=== PATIENT | male | born 1945 | race Caucasian/White ===

== ENCOUNTER 2018-11-07 05:33 | Inpatient (IN) | payer MEDICARE, OTHER ==
[2018-11-03 17:46] VITALS: BMI 28.9
[2018-11-07] VITALS (24 sets, daily range): BP systolic 110–140; BP diastolic 65–88; PULSE 77–100; RESP 11–24; Ht 170.2 cm; Wt 83.0 kg
[~2018-11-07] VITALS: Ht 170.2 cm; Wt 83.0 kg
[~2018-11-07 05:33] MED LIST: ASPI-903 PO; FISH1CAP PO; LOVA10TA63 PO
[2018-11-07] MEDS ORDERED: CRES5 PO (06:26)
[2018-11-07] MEDS ORDERED: OMEG-179 PO (06:28)
[2018-11-07] MEDS ORDERED: SURGIFOAM POWDER 1 GM KIT ONE ×3 (06:51→12:37)
[2018-11-07] MEDS ORDERED: THROMBIN 5000 UNIT VIAL ONE ×3 (06:51→10:10)
[2018-11-07] MEDS ORDERED: CA CHLORIDE 10% 10 ML SYRINGE ONE (06:52)
[2018-11-07] MEDS ORDERED: HEPARIN 1000 UNITS/ML 10 ML INJ ONE ×2 (06:53→08:17)
[2018-11-07] MEDS ORDERED: BUPIVACAINE 0.5%/EPI (SDV) 30 ML INJ ONE (06:55)
[2018-11-07] MEDS ORDERED: CEFAZOLIN 1 GM INJ ONE ×2 (06:55→07:00)
--- NOTE | 2018-11-07 06:59 | PREAC ---
Date/Time of Note Date/Time of Note DATE: 11/07/18 TIME: 06:57 Anesthesia Eval and Record Evaluation Time Pre-Procedure Interview DATE: 11/07/18 TIME: 06:57 Age 73 Sex male NPO: 8 hrs Preoperative diagnosis lumbar spinal degeration Planned procedure lumbar spinal decompression Past Medical History Past Medical History: Includes Cardio: HTN, Dyslipidemia, MS, CAD, PTCA/Stent, PPM/AICD Neuro: Peripheral neuropathy Surgery & Anesthesia Issues No known issue Meds Anticoagulation: No Beta Garima within 24 hr: No Reason Beta Garima not given: Pt. not on B-Garima Reported Medications [place]-3S/Dha/Epa/Fish Oil (FISH OIL 1,200 MG SOFTGEL) 1 Each Capsule, 1 EACH PO QHS, CAP 11/07/18 Rosuvastatin Calcium* (Crestor*) 5 Mg Tablet, 5 MG PO QHS, #30 TAB 11/07/18 Fish Oil/Dha/Epa (FISH OIL 1,200 MG FISH OIL) 1 Each Capsule, 1 EACH PO, CAP 11/03/18 Aspirin* (Aspirin* Chew) 81 Mg Tab.chew, 81 MG PO DAILY, TAB.CHEW 11/03/18 Lovastatin* (Lovastatin*) 10 Mg Tablet, 5 MG PO HS, TAB 11/03/18 Current Medications Cefazolin Sodium/ Dextrose 50 ml @ 100 mls/hr PREOP IVPB ; Start 11/27/18 at 07:00; Stop 11/27/18 at 16:00 Lactated Ringer's 1,000 ml @ 20 mls/hr Q24H IV* ; Start 11/07/18 at 07:00; Stop 11/09/18 at 08:59 Meds reviewed: Yes Allergies Coded Allergies: No Known Allergy (Unverified , 11/03/18) Allergies Reviewed: Yes Labs/Studies Labs Reviewed: Reviewed by anesthesiologist Blood Bank Test 11/07/18 06:04 Blood Type O POSITIVE test: N/A Studies: ECG, CXR, Other Pre-procedure Exam Last vitals Vital Signs Date Temp Pulse Resp B/P (MAP) Pulse Ox O2 O2 Flow FiO2 Time Delivery Rate 11/07/18 97.9 77 17 128/88 97 Room Air 06:22 (101) Airway: Adequate mouth opening, Adequate thyromental dist Mallampati: Mallampati III Teeth: Normal Lung: Normal Heart: Normal ASA Physical Status ASA physical status: 3 Emergency: None Planned Anesthetic General/MAC: ETT Planned Pain Management Parenteral pain med, Local by surgeon Pre-operative Attestations Prior to commencing anesthesia and surgery, the patient was re-evaluated, there was verification of: *The patient's identity *The results of appropriate recent lab work and preoperative vital signs *The above evaluation not changing prior to induction *Anesthetic plan, risk benefits, alternative and complications discussed with patient/family; questions answered; patient/family understands, accepts and wis hes to proceed. GLENDY HOFF MD Nov 07, 2018 06:59
[2018-11-07] MEDS ORDERED: LABETALOL HCL 20MG INJ IV PRN (07:00)
[2018-11-07] MEDS ORDERED: DIPHENHYDRAMINE 25 MG CAP PO PRN (07:00)
[2018-11-07] MEDS ORDERED: DIPHENHYDRAMINE 50 MG INJ IV PRN ×2 (07:00)
[2018-11-07] MEDS ORDERED: CYCLOBENZAPRINE 10 MG TAB PO PRN (07:00)
[2018-11-07] MEDS ORDERED: IPRATROPIUM (NEB) 0.5 MG/2.5 ML AMP HHN PRN (07:00)
[2018-11-07] MEDS: LACTATED RINGER'S 1,000 ML IV* SCH (07:00)
[2018-11-07] MEDS ORDERED: hydrALAzine 20 MG INJ IV PRN (07:00)
[2018-11-07] MEDS ORDERED: HYDROmorphONE 0.5 MG/0.5 ML SYG IV PRN (07:00)
[2018-11-07] MEDS ORDERED: NALOXONE (0.4 MG/ML) INJ IV PRN (07:00)
[2018-11-07] MEDS ORDERED: CEPASTAT LOZENGE MT PRN (07:00)
[2018-11-07] MEDS ORDERED: DESFLURANE 15 MIN ONE (07:00)
[2018-11-07] MEDS ORDERED: BISACODYL 10 MG SUPP PR PRN (07:00)
[2018-11-07] MEDS ORDERED: AL HYDROX/MG HYDROX/SIMETH 30 ML CUP PO PRN (07:00)
[2018-11-07] MEDS ORDERED: ONDANSETRON 4 MG INJ ONE (07:00)
[2018-11-07] MEDS ORDERED: HYDROmorphONE 0.2 MG/ML PCA IV SCH (07:00)
[2018-11-07] MEDS ORDERED: ROCURONIUM 50 MG INJ ONE ×2 (07:00→07:13)
[2018-11-07] MEDS ORDERED: METOCLOPRAMIDE 10 MG INJ ONE (07:00)
[2018-11-07] MEDS ORDERED: MEPERIDINE 25 MG INJ IV PRN (07:00)
[2018-11-07] MEDS ORDERED: LEVALBUTEROL (NEB) 1.25 MG/0.5 ML AMP HHN PRN (07:00)
[2018-11-07] MEDS ORDERED: FENTAnyl 50 MCG/ML VIAL IV PRN ×2 (07:00)
[2018-11-07] MEDS ORDERED: ONDANSETRON 4 MG INJ IV PRN ×2 (07:00)
[2018-11-07] MEDS ORDERED: HYDROmorphONE 1 MG/5 ML IV SYRINGE IV PRN ×3 (07:00)
--- NOTE | 2018-11-07 07:00 | HPN ---
Date/Time of Note Date/Time of Note DATE: 11/07/18 TIME: 06:59 Interval H&P Admission Note Pt. seen H&P reviewed: No system changes LINDA GLASS PA-C Nov 07, 2018 07:00
[2018-11-07] MEDS ORDERED: FENTAnyl 50 MCG/ML VIAL ONE ×3 (07:06→14:20)
[2018-11-07] MEDS ORDERED: ETOMIDATE 20 MG INJ ONE (07:07)
[2018-11-07] MEDS ORDERED: MIDAZOLAM 1 MG/ML 2 ML INJ ONE (07:07)
[2018-11-07] MEDS ORDERED: DEXAMETHASONE 4 MG/ML 5 ML INJ ONE (07:13)
[2018-11-07] MEDS ORDERED: SUCCINYLCHOLINE CHLORIDE 100 MG/5 ML SYG IV ONE (07:13)
[2018-11-07] MEDS ORDERED: LIDOCAINE 2% (SDV) 5 ML INJ ONE (07:13)
[2018-11-07] MEDS ORDERED: BUPIVACAINE 0.25% (MPF) 30 ML INJ ONE (12:52)
[2018-11-07] MEDS: CEFAZOLIN 1 GM/50 ML (PMX) 50 ML IVPB SCH ×2 (14:29→18:11)
[2018-11-07] MEDS: DOCUSATE SODIUM 100 MG CAP PO SCH ×2 (14:30→21:03)
--- NOTE | 2018-11-07 15:02 | OPR ---
DATE OF OPERATION: 11/07/2018 PREOPERATIVE DIAGNOSES: 1. L3 to L4, L4 to L5 unstable spondylolisthesis with stenosis and radiculopathy. 2. Neurogenic claudication. 3. Pacemaker. POSTOPERATIVE DIAGNOSES: 1. L3 to L4, L4 to L5 unstable spondylolisthesis with stenosis and radiculopathy. 2. Neurogenic claudication. 3. Pacemaker. PROCEDURES: 1. Bilateral pedicle screw placement at L3, L4 and L5. 2. Central decompressive laminectomy for stenosis with decompression of L3, L4, L5 nerve roots. 3. Bilateral Marcos-Ferreira osteotomies at L3 to L4 and L4 to L5. 4. Placement of intervertebral biomechanical device at L3 to L4 and L4 to L5 bilaterally. 5. Transforaminal lumbar interbody fusion L3 to L4, L4 to L5 bilaterally. 6. Posterolateral fusion, L4 to L5. 7. Use of allograft. 8. Use of autograft. 9. Use of C-arm fluoroscopy with interpretation without radiologist present. 10. Intraoperative neuromonitoring. 11. Use of operative microscope. PRIMARY SURGEON: Mikel Traylor MD EXECUTIVE ACCOUNT MANAGER: Sherly Hanks PA-C NEED FOR OFFICE RENTAL CLERK: During this spinal surgical procedure, my email marketing assistant was used to retract and protect the spinal nerves and dural sac. My email marketing assistant also employed the suction catheters to ev acuate blood from the surgical field to improve visualization of the neural structures. The assistan t was medically necessary to facilitate the completion of the surgery in a safe and expeditious [facility] r. [facility] regulations, as well as hospital bylaws, preclude the use of non-licensed [facility] personnel, such as operating room technicians, to perform these functions. IMPLANTS: 1. Kishor pedicle screws 6.5 x 45 mm at L3, L4 and L5 bilaterally with 35 mm rods and crosslink. 2. Nexxt Matrix titanium cage 26 x 12 mm at L3 to L4 bilaterally and 26 x 11 mm at L4 to L5 bilatera ll. 3. Biosphere. FINDINGS: Neuromonitoring at the start of the case revealed nerve signals down 30% bilaterally at L3 , L4 down 60% on the left, 20% on the right, L5 and S1 were down 50% bilaterally. At the end of the case, nerve signals returned to normal. The patient had significant stenosis at L3 to L4 and L4 to L 5 with sagittally oriented facet joints. The two levels are quite unstable with listhesis. There is facet hypertrophy and overgrowth. ESTIMATED BLOOD LOSS: 250 mL with blood return via Cell Saver. DRAINS: One. SPECIMENS: L3 to L4 and L4 to L5 disks. COMPLICATIONS OF PROCEDURES: None. ANESTHESIOLOGIST: Dr. Valerio. TYPE OF ANESTHESIA: General. INDICATIONS FOR PROCEDURE: This is a 73-year-old gentleman with spinal stenosis and neurogenic marly ication in the setting of unstable spondylolisthesis at L3 to L4 and L4 to L5 with resultant stenosis . He had a pacemaker and preoperative CT scan was reviewed. He had failed nonoperative measures; th erefore I recommended that he undergo the above procedure. Preoperatively, we discussed risks, benef its, alternatives. He understood and wished to proceed. DESCRIPTION OF PROCEDURE IN DETAIL: The patient was identified in the holding area, given Ancef anti biotic, taken to the operating room, where he was successfully placed under general anesthesia. Neur omonitoring leads were placed. Sequential compressive devices were applied. Friedman catheter was intr oduced. Arterial line and central lines were placed. Remote intraoperative neuromonitoring was perf ormed by Dr. Crow from 6:38 until 13:30 to include SSEP, MEP and EMG performed by [employer] [facility]. The patient was placed on the operating table in prone position over a Rickey frame. All bony p rominences were well padded. The back was then prepped and draped in usual fashion. Using the fahadi le fluoroscope, I identified the incision site. I anesthetized skin, subcutaneous tissue and paraspi nal musculature. Incision was then made from L3 to L5. Incision was taken down to dorsal fascia, wh ich was incised with Bovie cautery. I then subperiosteally dissected the L3, L4 and L5 lamina out to the transverse processes. Once the area was exposed, I placed bilateral pedicle screws at L3, L4 an d L5. Once the screws were in place, I stimulated each of the screws and there was no evidence of co rtical breach. Next, microscope was brought in. Central decompressive laminectomy was performed at L3 to L4 and L4 to L5. This was done in order to alleviate the stenosis and beyond was required in o rder to perform an interbody fusion. I also decompressed a portion of the medial facets at the L2 to L3 level. I was able to decompress the L3, L4 and L5 nerve roots bilaterally. The patient was foun d to be quite unstable. Once this was done, I then performed Marcos-Travis osteotomies bilaterally with complete removal of the pars and facets in order to mobilize the spine in order to reduce the sp ondylolisthesis. Next, I performed annulotomy and radical diskectomies bilaterally at L3 to L4 and L 4 to L5. I prepared the endplates. I placed various trials and chose the appropriate graft heights. I then placed autograft and allograft anteriorly. I then took the titanium cage within which I alice swetha allograft and I impacted intervertebral biomechanical devices bilaterally at L3 to L4 and L4 to L 5 to complete the transforaminal lumbar interbody fusion bilaterally at L3 to L4 and L4 to L5. Once this was done, the Rickey frame was let down. I placed the appropriate size rods and set screws whic h I tightened per manufacture specifications and the set screw cadmium plater tabs were removed. Due to th e instability, I also placed a crosslink which was done between the L4 and L5 pedicle screws. At thi s point, I took final AP and lateral images and I was happy with placement of the hardware and alignm ent of the spine. The wound was then copiously irrigated. The specimen was performed and there was no leak of CSF. I prepared the posterolateral gutters and placed autograft and allograft for postero lateral fusion at L3 to L4 and L4 to L5. I then placed an epidural catheter through which I injected 100 mcg of fentanyl mixed with 2 mL of Marcaine 0.25% preservative-free and the catheter was pulled. PPP and thrombin were injected over the dura for hemostatic purposes. I then placed a deep subfasc ial drain and closed deep fascia with #1 Stratafix suture. At this point, microscope was off the anna ld. I then closed subcutaneous tissue with a 2-0 Vicryl stitch. I then performed a Monocryl closure with a 4-0 Monocryl in subcuticular layer. Dermabond and sterile dressing was then applied. Nerve signals were normal. The patient was awakened from anesthesia and taken to the recovery room in stab le condition. Lap, sponge and instrument counts were correct x2. There were no apparent complicatio ns during the procedure. The patient will be admitted to the orthopedic [facility] for routine postoperative care to include pain co ntrol, neurovascular checks, antibiotics and physical therapy. Dictated By: MIKEL ALVAREZ/NTS Conf#: [id number] [facility]#: [id number] CC: NEHEMIAH DANIELLE MD;*EndCC*
--- NOTE | 2018-11-07 16:19 | SIPON ---
Date/Time of Note Date/Time of Note DATE: 11/07/18 TIME: 16:18 Operative Report Preoperative Diagnosis Spondylolisthesis Postoperative Diagnosis Spondylolisthesis Operation/Procedure Performed Lumbar fusion Surgeon see signature line ob gyn physician assistant Sherly Hanks PA-C Anesthesia: general Estimated blood loss: 250 - 300 ml's Transfusion Required none Specimen Disc Grafts/Implants Cage and screws Complications none CAR BAIG MD Nov 07, 2018 16:19
--- NOTE | 2018-11-07 16:39 | PAC ---
Date/Time of Note Date/Time of Note DATE: 11/07/18 TIME: 16:39 Post-Anesthesia Notes Post-Anesthesia Note Last documented vital signs Vital Signs Date Temp Pulse Resp B/P (MAP) Pulse Ox O2 O2 Flow FiO2 Time Delivery Rate 11/07/18 100.1 13:50 11/07/18 77 17 128/88 97 Room Air 06:22 (101) Activity: WNL Respiratory function: WNL Cardiovascular function: WNL Mental status: Baseline Pain reasonably controlled: Yes Hydration appropriate: Yes Nausea/Vomiting absent: Yes GLENDY HOFF MD Nov 07, 2018 16:39
[2018-11-07] MEDS: D5W-0.45 NACL + KCL 20 MEQ 1,000 ML IV SCH ×2 (17:00→18:26)
--- NOTE | 2018-11-07 20:11 | CONS ---
DATE OF ADMISSION: 11/07/2018 DATE OF CONSULTATION: TYPE OF CONSULTATION: Medical. Thank you, Dr. Traylor, for asking me to participate in medical management of this patient. REASON FOR CONSULTATION: To manage the patient's coronary artery disease, hyperlipidemia. HISTORY OF PRESENT ILLNESS: This 73-year-old man is now postop a lumbar spine surgery. The patient has a history of lumbar spine stenosis. He was having neurogenic claudication and failed medical the rapy. He is now postop having a central decompressive laminectomy with decompression of L3, L4, L5 n erve roots and the placement of intervertebral biomechanical device bilaterally for posterolateral fu tonny of L4 to L5. The patient is awake and alert. He is conversant and seems comfortable. He is mc ving some incisional low back pain, but the pain is under control. He denies chest pain or shortness of breath. The patient does have a history of coronary artery disease and did undergo a coronary ar rajesh stent placement in the LAD in 2002. He was seen preoperatively by Dr. Prachi Luis and had cardiac clearance for this surgery. CURRENT MEDICATIONS: Included: 1. Fish oil and baby aspirin, which were discontinued prior to surgery. 2. He is also taking Crestor 5 mg a day. PAST MEDICAL HISTORY: Remarkable for pacemaker placement in 2015, encephalitis in 2010, cardiac sten t placement in 2002, squamous cell skin cancer removed, coronary artery disease, encephalitis in 2010 , squamous cell skin cancer, hyperlipidemia. PAST SURGICAL HISTORY: Coronary artery stent placement in 2002, pacemaker in 2015, squamous cell ski n cancer removed. SOCIAL HISTORY: The patient is retired, . Quit smoking in 1997 and drinks alcohol a few time s a year. ALLERGIES: HE HAS INTOLERANCE TO: 1. HIGH DOSES OF ANTIBIOTICS. 2. MOBIC. 3. STEROIDS. HE DOES NOT HAVE TRUE DRUG ALLERGIES. PHYSICAL EXAMINATION: GENERAL: At this time reveals a well-developed man in no apparent distress. VITAL SIGNS: He is afebrile, pulse of 84, respirations 20, blood pressure 112/76, O2 saturation 97% on room air. HEENT: Head is normocephalic. Eyes: Extraocular muscles are intact. Nose and mouth are normal. NECK: Supple. No neck vein distention. LUNGS: Clear to auscultation. HEART: Regular rhythm. No murmurs, gallops or rubs. ABDOMEN: Soft, nontender. No masses or megaly. EXTREMITIES: No peripheral edema. IMPRESSION: This patient is now postop a lumbar spine surgery including decompression and fusion of L3 to L4. He is awake and alert. His pain is under control. I will manage the patient's coronary a rtery disease, hyperlipidemia and any other medical issues that arise. PLAN: 1. Hold current medications. 2. Check labs in the morning. 3. Postop lumbar spine surgery protocol. 4. I will follow the patient along with you. Dictated By: NEHEMIAH DANIELLE MD ND/NTS Conf#: [id number] DID#: [id number] CC: CAR TRAYLOR MD;*End*
[2018-11-08] MEDS: CEFAZOLIN 1 GM/50 ML (PMX) 50 ML IVPB SCH (02:02)
[2018-11-08] MEDS: D5W-0.45 NACL + KCL 20 MEQ 1,000 ML IV SCH (05:00)
[2018-11-08] MEDS: PANTOPRAZOLE 40 MG INJ IV SCH ×2 (05:31→06:56)
[2018-11-08] MEDS: LACTATED RINGER'S 1,000 ML IV* SCH (05:31)
[2018-11-08 07:40] VITALS: BP 107/61; PULSE 90; RESP 18
--- NOTE | 2018-11-08 08:24 | CONS ---
Date/Time of Note Date/Time of Note DATE: 11/08/18 TIME: 08:21 Assessment/Plan Assessment/Plan Assessment/Plan 1. This patient is 1 day postop a lumbar spine surgery, decompression and fusion. He is awake and alert. He does have some incisional back pain but is under control with current medications. 2. He will start physical therapy today. He is not having any cardiac or pulmonary symptoms. Result Diagram: 11/08/18 0435 11/08/18 0435 Results 24hrs Laboratory Tests Test 11/08/18 03:15 11/08/18 04:35 11/08/18 06:39 Urine Color YELLOW Urine Clarity SLIGHTLY CLOUDY A Urine pH 5.0 Urine Specific Pierce 1.025 Urine Ketones NEGATIVE Urine Nitrite NEGATIVE Urine Bilirubin NEGATIVE Urine Urobilinogen NEGATIVE Urine Leukocyte Esterase NEGATIVE Urine Microscopic RBC 181 H Urine Microscopic WBC 6 H Urine Bacteria FEW A Urine Mucus FEW A Urine Hemoglobin 2+ H Urine Glucose NEGATIVE Urine Total Protein 1+ H White Blood Count 9.4 Red Blood Count 3.95 L Hemoglobin 10.0 L Hematocrit 32.1 L Mean Corpuscular Volume 81.3 L Mean Corpuscular Hemoglobin 25.3 L Mean Corpuscular 31.2 L Hemoglobin Concent Red Cell Distribution Width 15.1 H Platelet Count 102 L Mean Platelet Volume 11.4 H Immature Granulocytes % 0.200 Neutrophils % 77.7 H Lymphocytes % 11.2 L Monocytes % 10.7 Eosinophils % 0.1 Basophils % 0.1 Nucleated Red Blood Cells % 0.0 Immature Granulocytes # 0.020 Neutrophils # 7.3 Lymphocytes # 1.1 Monocytes # 1.0 H Eosinophils # 0.0 Basophils # 0.0 Nucleated Red Blood Cells # 0.0 Sodium Level 137 Potassium Level 4.0 Chloride Level 105 Carbon Dioxide Level 26 Anion Gap 6 Blood Urea Nitrogen 14 Creatinine 0.74 Est Glomerular Filtrat Rate mL/min Glucose Level 128 Calcium Level 8.2 L Magnesium Level 1.9 Lab Scanned Report REFERENCE LAB Consultation Date/Type/Reason Admit Date/Time Nov 07, 2018 at 05:33 Initial Consult Date 24 HR Interval Summary Free Text/Dictation Del is 1 day postop lumbar spine surgery. He is awake and alert. He has no complaints other than some incisional back pain. Constitutional: no complaints, improved Exam/Review of Systems Vital Signs Vitals Vital Signs Date Temp Pulse Resp B/P (MAP) Pulse Ox O2 O2 Flow FiO2 Time Delivery Rate 11/08/18 98.3 90 18 107/61 98 Nasal 07:40 (76) Cannula 11/07/18 2.0 23:55 Intake and Output 11/07/18 11/07/18 11/08/18 1515:00 23:00 07:00 IntakeIntake Total 1700 ml 310 ml 1300 ml OutputOutput Total 850 ml 500 ml 950 ml BalanceBalance 850 ml -190 ml 350 ml Exam Constitutional: alert, oriented, well developed Respiratory: clear to auscultation, normal air movement Cardiovascular: regular rate and rhythm Gastrointestinal: soft, non-tender Musculoskeletal: nl extremities to inspection Medications Medications Current Medications Lactated Ringer's 1,000 ml @ 20 mls/hr Q24H IV* ; Start 11/07/18 at 07:00; Stop 11/09/18 at 08:59 Potassium Chloride/Dextrose/ Sod Cl 1,000 ml @ 100 mls/hr Q10H IV Last admini stered on 11/08/18at 05:00; Admin Dose 100 MLS/HR; Start 11/07/18 at 07:00 Acetaminophen/ Hydrocodone Bitart ([place] (10/325)) 1 tab Q4H PRN PO PAIN LEVEL 1-5; Start 11/09/18 at 10:00 Acetaminophen/ Hydrocodone Bitart ([place] (10/325)) 2 tab Q4H PRN PO PAIN LEVEL 6-10; Start 11/08/18 at 10:00 Hydromorphone HCl (Dilaudid) 0.2 mg Q1H PRN IV BREAKTHROUGH PAIN; Start 11/07/18 at 07:00 Ondansetron HCl (Zofran Inj) 4 mg Q6H PRN IV NAUSEA AND/OR VOMITING Last administered on 11/07/18at 14:42; Admin Dose 4 MG; Start 11/07/18 at 07:00 Bisacodyl (Dulcolax Supp) 10 mg DAILY PRN [place] CONSTIPATION; Start 11/07/18 at 07:00 Docusate Sodium (Colace) 100 mg BID PO Last administered on 11/07/18at 21:03; Admin Dose 100 MG; Start 11/07/18 at 09:00 Pantoprazole (Protonix Iv) 40 mg DAILY@06 IV Last administered on 11/08/18at 06:56; Admin Dose 40 MG; Start 11/08/18 at 06:00 Al Hydrox/Mg Hydrox/Simethicone (Mag-Al Plus) 15 ml Q6H PRN PO GASTROINTESTINAL UPSET; Start 11/07/18 at 07:00 Acetaminophen (Tylenol Tab) 650 mg Q4H PRN PO fever; Start 11/07/18 at 07:00 Cyclobenzaprine HCl (Flexeril) 10 mg TID PRN PO MUSCLE SPASMS; Start 11/07/18 at 07:00 Phenol (Cepastat Lozenge) 1 lozenge PRN PRN [place] SORE THROAT; Start 11/07/18 at 07:00 Diphenhydramine HCl (Benadryl) 25 mg Q6H PRN PO ITCHING; Start 11/07/18 at 07:00 Diphenhydramine HCl (Benadryl) 25 mg Q6H PRN IV ITCHING; Start 11/07/18 at 07:00 Naloxone HCl (Narcan) 0.2 mg Q2M PRN IV DECREASED REPIRATORY RATE; Start 11/07/18 at 07:00 Hydromorphone HCl (Dilaudid SUGAR GRINDER) SUGAR GRINDER to be started in PACU Q4PCA IV Last administered on 11/07/18at 14:28; Admin Dose 6 MG; Start 11/07/18 at 07:00; Stop 11/09/18 at 10:00 Miscellaneous Information 1. Hold SUGAR GRINDER at 1,000... SUGAR GRINDER IV ; Start 11/07/18 at 07:00; Stop 11/09/18 at 10:00 NEHEMIAH DANIELLE MD Nov 08, 2018 08:24
[2018-11-08] MEDS: DOCUSATE SODIUM 100 MG CAP PO SCH ×2 (09:50→22:21)
[2018-11-08] MEDS ORDERED: HYDROCODONE/APAP (10/325) TAB PO PRN (10:00)
--- NOTE | 2018-11-08 13:05 | PN ---
Date/Time of Note Date/Time of Note DATE: 11/08/18 TIME: 13:04 Assessment/Plan Lines/Catheters IV Catheter Type (from Nrsg): Central Line Friedman in Place (from Nrsg): Yes Assessment/Plan Assessment/Plan The patient is doing extremely well 1 day after surgery. His leg pain has resolved. He is now able to walk erect and not bent over. I will discontinue his ASBESTOS ABATEMENT TECHNICIAN and Friedman catheter as well as his central line. He will start oral pain medications and continue with physical therapy Subjective 24 Hr Interval Summary Resolution of leg pain. Has postoperative back pain. Exam/Review of Systems Vital Signs Vitals Vital Signs Date Temp Pulse Resp B/P (MAP) Pulse Ox O2 O2 Flow FiO2 Time Delivery Rate 11/08/18 17 09:00 11/08/18 98.3 90 107/61 98 Nasal 07:40 (76) Cannula 11/07/18 2.0 23:55 Intake and Output 11/07/18 11/07/18 11/08/18 1515:00 23:00 07:00 IntakeIntake Total 1700 ml 310 ml 1300 ml OutputOutput Total 850 ml 500 ml 950 ml BalanceBalance 850 ml -190 ml 350 ml Exam Free Text/Dictation Neuro intact Results Result Diagram: 11/08/18 0435 11/08/18 0435 CAR BAIG MD Nov 08, 2018 13:05
[2018-11-08 15:25] VITALS: BP 112/64; PULSE 89; RESP 18
[2018-11-08] MEDS: ACETAMINOPHEN 325 MG TAB PO PRN ×2 (17:37→22:21)
[2018-11-08 19:10] VITALS: BP 107/64; PULSE 93; RESP 20
[2018-11-09 02:37] VITALS: BP 102/63; PULSE 90; RESP 17
[2018-11-09] MEDS: LACTATED RINGER'S 1,000 ML IV* SCH (02:57)
[2018-11-09 07:38] VITALS: BP 114/72; PULSE 87; RESP 20
--- NOTE | 2018-11-09 08:06 | DS ---
Date/Time of Note Date/Time of Note DATE: 11/09/18 TIME: 08:05 Discharge Summary Admission/Discharge Info Admit Date/Time Nov 07, 2018 at 05:33 Discharge Date/Time November 09 Discharge Diagnosis Lumbar fusion Patient Condition: Good Procedures L3-4 and L4-5 decompression and instrumented fusion Hospital Course Patient was admitted to the orthopedic [facility] after undergoing the above procedure. His postoperative course was uncomplicated. By postoperative day 2 he is deemed stable for discharge with follow-up arranged with the undersigned Home Meds Reported Medications [place]-3S/Dha/Epa/Fish Oil (FISH OIL 1,200 MG SOFTGEL) 1 Each Capsule, 1 EACH PO QHS, CAP 11/07/18 Rosuvastatin Calcium* (Crestor*) 5 Mg Tablet, 5 MG PO QHS, #30 TAB 11/07/18 Fish Oil/Dha/Epa (FISH OIL 1,200 MG FISH OIL) 1 Each Capsule, 1 EACH PO, CAP 11/03/18 Aspirin* (Aspirin* Chew) 81 Mg Tab.chew, 81 MG PO DAILY, TAB.CHEW 11/03/18 Lovastatin* (Lovastatin*) 10 Mg Tablet, 5 MG PO HS, TAB 11/03/18 Primary Care Provider Not On Staff Doctor Pending Labs Laboratory Tests Test 11/09/18 04:27 White Blood Count 8.5 10^3/ul (4.8-10.8) Red Blood Count 3.70 10^6/ul (4.70-6.10) Hemoglobin 9.6 g/dl (14.0-18.0) Hematocrit 30.1 % (42.0-52.0) Mean Corpuscular Volume 81.4 fl (82.0-101.0) Mean Corpuscular Hemoglobin 25.9 pg (29.0-33.0) Mean Corpuscular Hemoglobin Concent 31.9 g/dl (32.0-37.0) Red Cell Distribution Width 15.2 % (11.5-14.5) Platelet Count 91 10^3/UL (140-415) Mean Platelet Volume 11.4 fl (7.4-10.4) Immature Granulocytes % 0.400 % (0.001-0.429) Neutrophils % 72.5 % (39.0-77.0) Lymphocytes % 14.7 % (15.0-51.0) Monocytes % 12.0 % (0.0-11.0) Eosinophils % 0.2 % (0.0-7.0) Basophils % 0.2 % (0.0-2.0) Nucleated Red Blood Cells % 0.0 /100WBC (0.0-0.0) Immature Granulocytes # 0.030 10^3/ul (0.0-0.031) Neutrophils # 6.2 10^3/ul (1.6-7.5) Lymphocytes # 1.3 10^3/ul (0.8-2.9) Monocytes # 1.0 10^3/ul (0.3-0.9) Eosinophils # 0.0 10^3/ul (0.0-0.5) Basophils # 0.0 10^3/ul (0.0-0.1) Nucleated Red Blood Cells # 0.0 10^3/ul (0.0-0.0) Sodium Level 140 mmol/L (135-144) Potassium Level 3.9 mmol/L (3.5-5.1) Chloride Level 107 mmol/L (97-110) Carbon Dioxide Level 28 mmol/L (21-31) Anion Gap 5 (5-13) Blood Urea Nitrogen 11 mg/dl (7-20) Creatinine 0.74 mg/dl (0.61-1.24) Est Glomerular Filtrat Rate mL/min mL/min (>60) Glucose Level 105 mg/dl (70-220) Calcium Level 8.7 mg/dl (8.4-10.2) Magnesium Level 2.2 mg/dl (1.7-2.5) CAR BAIG MD Nov 09, 2018 08:06
[2018-11-09] MEDS: ACETAMINOPHEN 325 MG TAB PO PRN ×2 (08:51→12:43)
[2018-11-09] MEDS: DOCUSATE SODIUM 100 MG CAP PO SCH (08:51)
--- NOTE | 2018-11-09 09:55 | CONS ---
Date/Time of Note Date/Time of Note DATE: 11/09/18 TIME: 09:53 Assessment/Plan Assessment/Plan Assessment/Plan 1. This patient is 2 days postop a lumbar spine surgery, decompression and fusion. He is awake and alert. He does have some incisional back pain but is under control with current medications. 2. He is working with physical therapy now.. He is not having any cardiac or pulmonary symptoms. He is cleared to be discharged to home today 1 cleared by physical therapy and ortho . Result Diagram: 11/09/18 0427 11/09/18426 Results 24hrs Laboratory Tests Test 11/09/18 04:27 White Blood Count 8.5 Red Blood Count 3.70 L Hemoglobin 9.6 L Hematocrit 30.1 L Mean Corpuscular Volume 81.4 L Mean Corpuscular Hemoglobin 25.9 L Mean Corpuscular Hemoglobin Concent 31.9 L Red Cell Distribution Width 15.2 H Platelet Count 91 L Mean Platelet Volume 11.4 H Immature Granulocytes % 0.400 Neutrophils % 72.5 Lymphocytes % 14.7 L Monocytes % 12.0 H Eosinophils % 0.2 Basophils % 0.2 Nucleated Red Blood Cells % 0.0 Immature Granulocytes # 0.030 Neutrophils # 6.2 Lymphocytes # 1.3 Monocytes # 1.0 H Eosinophils # 0.0 Basophils # 0.0 Nucleated Red Blood Cells # 0.0 Sodium Level 140 Potassium Level 3.9 Chloride Level 107 Carbon Dioxide Level 28 Anion Gap 5 Blood Urea Nitrogen 11 Creatinine 0.74 Est Glomerular Filtrat Rate mL/min Glucose Level 105 Calcium Level 8.7 Magnesium Level 2.2 Consultation Date/Type/Reason Admit Date/Time Nov 07, 2018 at 05:33 Initial Consult Date 24 HR Interval Summary Free Text/Dictation He is now 2 days postop a lumbar spine surgery. He is up walking with physical therapy. He has no new complaints. Constitutional: no complaints, improved Exam/Review of Systems Vital Signs Vitals Vital Signs Date Temp Pulse Resp B/P (MAP) Pulse Ox O2 O2 Flow FiO2 Time Delivery Rate 11/09/18 97.8 87 20 114/72 94 07:38 (86) 11/09/18 Room Air 02:37 11/07/18 2.0 23:55 Intake and Output 11/08/18 11/08/18 11/09/18 1515:00 23:00 07:00 IntakeIntake Total 1350 ml 800 ml OutputOutput Total 3485 ml 595 ml 30 ml BalanceBalance -2135 ml 205 ml -30 ml Exam Constitutional: alert, oriented, well developed Respiratory: clear to auscultation, normal air movement Cardiovascular: regular rate and rhythm Gastrointestinal: soft, non-tender Musculoskeletal: nl extremities to inspection Medications Medications Current Medications Acetaminophen/ Hydrocodone Bitart ([place] (10/325)) 1 tab Q4H PRN PO PAIN LEVEL 1-5; Start 11/09/18 at 10:00 Acetaminophen/ Hydrocodone Bitart ([place] (10/325)) 2 tab Q4H PRN PO PAIN LEVEL 6-10; Start 11/08/18 at 10:00 Hydromorphone HCl (Dilaudid) 0.2 mg Q1H PRN IV BREAKTHROUGH PAIN; Start 11/07/18 at 07:00 Ondansetron HCl (Zofran Inj) 4 mg Q6H PRN IV NAUSEA AND/OR VOMITING Last administered on 11/07/18at 14:42; Admin Dose 4 MG; Start 11/07/18 at 07:00 Bisacodyl (Dulcolax Supp) 10 mg DAILY PRN MD CONSTIPATION; Start 11/07/18 at 07:00 Docusate Sodium (Colace) 100 mg BID PO Last administered on 11/09/18at 08:51; Admin Dose 100 MG; Start 11/07/18 at 09:00 Pantoprazole (Protonix Iv) 40 mg DAILY@06 IV Last administered on 11/08/18at 06:56; Admin Dose 40 MG; Start 11/08/18 at 06:00 Al Hydrox/Mg Hydrox/Simethicone (Mag-Al Plus) 15 ml Q6H PRN PO GASTROINTESTINAL UPSET Last administered on 11/08/18at 17:38; Admin Dose 15 ML; Start 11/07/18 at 07:00 Acetaminophen (Tylenol Tab) 650 mg Q4H PRN PO fever Last administered on 11/09/18 08:51; Admin Dose 650 MG; Start 11/07/18 at 07:00 Cyclobenzaprine HCl (Flexeril) 10 mg TID PRN PO MUSCLE SPASMS Last administered on 11/09/18at 00:59; Admin Dose 10 MG; Start 11/07/18 at 07:00 Phenol (Cepastat Lozenge) 1 lozenge PRN PRN MT SORE THROAT; Start 11/07/18 at 07 :00 Diphenhydramine HCl (Benadryl) 25 mg Q6H PRN PO ITCHING; Start 11/07/18 at 07:00 Diphenhydramine HCl (Benadryl) 25 mg Q6H PRN IV ITCHING; Start 11/07/18 at 07:00 Naloxone HCl (Narcan) 0.2 mg Q2M PRN IV DECREASED REPIRATORY RATE; Start 11/07/18 at 07:00 Hydromorphone HCl (Dilaudid LABORATORY CUREMAN) LABORATORY CUREMAN to be started in PACU Q4PCA IV Last administered on 11/07/18at 14:28; Admin Dose 6 MG; Start 11/07/18 at 07:00; Stop 11/09/18 at 10:00 NEHEMIAH DANIELLE MD Nov 09, 2018 09:55
[2018-11-09] MEDS ORDERED: HYDROCODONE/APAP (10/325) TAB PO PRN (10:00)
[2018-11-27] MEDS ORDERED: CEFAZOLIN 2 GM/50 ML (PMX) 50 ML IVPB SCH (07:00)
== END 2018-11-09 14:40 | disposition home or self-care (01) | DRG 460 ==
LOC: REC 05:33 → EDSTATUS 07:00 → MS1 15:09
PROVIDERS: ADMIT Specialist; ATTEND Specialist
PROC: 0SG107J Fusion of 2 or more Lumbar Vertebral Joints with Autologous Tissue Substitute, Posterior Approach, Anterior Column, Open Approach (ICD-10-PCS; 2018-11-07)
PROC: 01NB0ZZ Release Lumbar Nerve, Open Approach (ICD-10-PCS; 2018-11-07)
PROC: 4A1104G Monitoring of Peripheral Nervous Electrical Activity, Intraoperative, Open Approach (ICD-10-PCS; 2018-11-07)
PROC: 01NB0ZZ Release Lumbar Nerve, Open Approach (ICD-10-PCS; principal; 2018-11-07 07:00)
DX: M48.062 Spinal stenosis, lumbar region with neurogenic claudication (principal); M54.17 Radiculopathy, lumbosacral region; Z95.0 Presence of cardiac pacemaker; Z85.828 Personal history of other malignant neoplasm of skin; Z87.891 Personal history of nicotine dependence; I25.10 Atherosclerotic heart disease of native coronary artery without angina pectoris; E78.5 Hyperlipidemia, unspecified
CPT/HCPCS: 71045; 72110; 80048; 81001; 83735; 85025; 86850; 86900; 86901; 86999; 87086; 88304; 97116; 97161; 97530; C9113; J0690; J1100; J1170; J1644; J2250; J2405; J2765; J3010; J3480; J7120